=== PATIENT | male | born 1955 | race Caucasian/White ===

== ENCOUNTER 2018-03-23 07:15 | Emergency (ER) | payer BC, OTHER ==
[~2018-03-23] VITALS: Ht 180.3 cm; Wt 90.0 kg
[2018-03-23] MEDS ORDERED: etomidate 2mg/ml inj. IV ONE (07:30)
[2018-03-23 07:46] LABS: BASOPHILS % (AUTO) 0.5 % (0-1); EOSINOPHILS # (AUTO) 0.3 X10'3 (0-0.9); EOSINOPHILS % (AUTO) 4.8 % (0-6); HEMATOCRIT 40.7 % (42.0-52.0); LYMPHOCYTES # (AUTO) 1.5 X10'3 (1.1-4.8); MEAN CORPUSCULAR HEMOGLOBIN 29.5 PG (27.0-31.0); MEAN CORPUSCULAR HGB CONC 34.4 % (33.0-36.5); MEAN CORPUSCULAR VOLUME 85.7 FL (78-98); MEAN PLATELET VOLUME 9.5 FL (7.4-10.4); MONOCYTES # (AUTO) 0.6 X10'3 (0-0.9); MONOCYTES % (AUTO) 8.5 % (2-12); NEUTROPHILS # (AUTO) 4.6 X10'3 (1.8-7.7); NEUTROPHILS % (AUTO) 65.2 % (42-75); PLATELET COUNT 173 X10'3 (140-440); RED BLOOD COUNT 4.75 X10'6 (4.70-6.10); RED CELL DISTRIBUTION WIDTH 14.4 % (11.5-14.5); WHITE BLOOD COUNT 7.1 X10'3 (4.5-11.0)
[2018-03-23 08:00] LABS: ALANINE AMINOTRANSFERASE 31 U/L (12-78); ALBUMIN 3.3 G/DL (3.4-5.0); ALBUMIN/GLOBULIN RATIO 0.8 (1.1-1.5); ALKALINE PHOSPHATASE 68 IU/L (46-116); ANION GAP 11 (8-16); ASPARTATE AMINO TRANSFERASE 21 U/L (10-37); BILIRUBIN,TOTAL 0.5 MG/DL (0.1-1.0); BLOOD UREA NITROGEN 16 MG/DL (7-18); BUN/CREATININE RATIO 14.2 (5.4-32.0); CALCIUM 8.8 MG/DL (8.5-10.1); CHLORIDE 104 MMOL/L (99-107); CREATININE 1.13 MG/DL (0.60-1.10); GLUCOSE 178 MG/DL (70-104); POTASSIUM 4.2 MMOL/L (3.5-5.1); SODIUM 140 MMOL/L (135-145); TOTAL CARBON DIOXIDE 25.5 MMOL/L (24-32); TOTAL PROTEIN 7.2 G/DL (6.4-8.2); eGFR 66 ML/MIN
[2018-03-23 08:10] LABS: PARTIAL THROMBOPLASTIN TIME 29 SECONDS (22-32); PROTHROMBIN TIME 10.4 SECONDS (9.0-12.0)
[2018-03-23 09:29] VITALS: BP 123/69
== END 2018-03-23 09:39 | disposition home or self-care (01) ==
LOC: ER 07:16
DX: I48.92 Unspecified atrial flutter (principal); I48.91 Unspecified atrial fibrillation; Z95.5 Presence of coronary angioplasty implant and graft
CPT/HCPCS: 36415; 71045; 80053; 83880; 84484; 85025; 85610; 85730; 92960; 93005; 99285; J3490

== ENCOUNTER 2020-09-12 22:45 | Emergency (ER) | payer BC, OTHER ==
[~2020-09-12] VITALS: Ht 180.3 cm; Wt 80.0 kg
[2020-09-12 23:37] LABS: EOSINOPHILS # (AUTO) 0.3 X10'3 (0-0.9); MEAN PLATELET VOLUME 9.2 FL (7.4-10.4); MONOCYTES # (AUTO) 0.7 X10'3 (0-0.9)
[2020-09-12 23:38] LABS: BASOPHILS # (AUTO) 0.1 X10'3 (0-0.2); BASOPHILS % (AUTO) 0.7 % (0-1); EOSINOPHILS % (AUTO) 3.7 % (0-6); HEMATOCRIT 43.5 % (42.0-52.0); HEMOGLOBIN 14.6 g/dl (14.0-17.9); LYMPHOCYTES # (AUTO) 1.5 X10'3 (1.1-4.8); LYMPHOCYTES % (AUTO) 19.1 % (21-51); MEAN CORPUSCULAR HGB CONC 33.5 g/dL (33.0-36.5); MEAN CORPUSCULAR VOLUME 86.5 FL (78-98); MONOCYTES % (AUTO) 8.6 % (2-12); NEUTROPHILS # (AUTO) 5.4 X10'3 (1.8-7.7); NEUTROPHILS % (AUTO) 67.9 % (42-75); PLATELET COUNT 179 X10'3 (140-440); RED BLOOD COUNT 5.03 X10'6 (4.70-6.10); RED CELL DISTRIBUTION WIDTH 14.9 % (11.5-14.5)
[2020-09-12] MEDS: metoprolol tartrate 1mg/ml inj IV PRN (23:40)
[2020-09-12 23:41] LABS: D-DIMER 0.56 MG/L FEU (0-0.50); PARTIAL THROMBOPLASTIN TIME 29 SECONDS (22-32)
[2020-09-12 23:43] LABS: ALANINE AMINOTRANSFERASE 29 U/L (12-78); ALBUMIN 3.1 G/DL (3.4-5.0); ALBUMIN/GLOBULIN RATIO 0.7 (1.1-1.5); ALKALINE PHOSPHATASE 78 IU/L (46-116); ANION GAP 9 (8-16); ASPARTATE AMINO TRANSFERASE 16 U/L (10-37); BILIRUBIN,TOTAL 0.3 MG/DL (0.1-1.0); BLOOD UREA NITROGEN 16 MG/DL (7-18); BUN/CREATININE RATIO 16.3 (5.4-32.0); CALCIUM 9.4 MG/DL (8.5-10.1); CHLORIDE 105 MMOL/L (99-107); CREATININE 0.98 MG/DL (0.60-1.10); GLUCOSE 182 MG/DL (70-104); SODIUM 141 MMOL/L (135-145); TOTAL CARBON DIOXIDE 27.3 MMOL/L (24-32); TOTAL PROTEIN 7.5 G/DL (6.4-8.2); eGFR 77 ML/MIN
[2020-09-12] MEDS ORDERED: ALB0.5UD (23:53)
[2020-09-12] MEDS ORDERED: LEVO500T89 PO (23:53)
[2020-09-12] MEDS ORDERED: UMEC62.5 PO (23:53)
[2020-09-12] MEDS ORDERED: ROSU10TA28 PO (23:53)
[2020-09-12] MEDS ORDERED: METF-438 PO (23:53)
[2020-09-12] MEDS ORDERED: SITA100T15 PO (23:53)
[2020-09-12] MEDS ORDERED: ASPI81TA52 PO (23:53)
[2020-09-12] MEDS ORDERED: METO50TA16 PO (23:53)
[2020-09-12] MEDS ORDERED: APIX5TAB3 PO (23:53)
[2020-09-12] MEDS ORDERED: NYST1000 PO (23:53)
[2020-09-12 23:54] LABS: TROPONIN I < 0.04 NG/ML (0.0-0.05)
[2020-09-13] MEDS: metoprolol tartrate 1mg/ml inj IV PRN (00:11)
[2020-09-13] MEDS ORDERED: etomidate 2mg/ml inj. IV ONE (00:45)
[2020-09-13 02:24] VITALS: BP 112/69
== END 2020-09-13 02:26 | disposition home or self-care (01) ==
LOC: ER 22:45
DX: I48.20 Chronic atrial fibrillation, unspecified (principal); R06.02 Shortness of breath; I25.10 Atherosclerotic heart disease of native coronary artery without angina pectoris; J44.9 Chronic obstructive pulmonary disease, unspecified; F17.200 Nicotine dependence, unspecified, uncomplicated; Z85.118 Personal history of other malignant neoplasm of bronchus and lung; Z98.890 Other specified postprocedural states; Z79.82 Long term (current) use of aspirin; Z79.2 Long term (current) use of antibiotics; Z79.899 Other long term (current) drug therapy
CPT/HCPCS: 36415; 71045; 80053; 83880; 84439; 84443; 84484; 85025; 85379; 85610; 85730; 92960; 93005; 94760; 94799; 96374; 96376; 99291; J3490

== ENCOUNTER 2020-11-02 07:44 | Inpatient (IN) | payer BC, OTHER ==
[~2020-11-02] VITALS: Ht 180.3 cm; Wt 79.5 kg
[~2020-11-02 07:44] MED LIST: ALB0.5UD; APIX5TAB3 PO; ASPI81TA52 PO; LEVO500T89 PO; METF-438 PO; METO50TA16 PO; NYST1000 PO; ROSU10TA28 PO; SITA100T15 PO; UMEC62.5 PO
[2020-11-02 08:47] LABS: BASOPHILS # (AUTO) 0.1 X10'3 (0-0.2); BASOPHILS % (AUTO) 0.5 % (0-1); EOSINOPHILS # (AUTO) 0.1 X10'3 (0-0.9); EOSINOPHILS % (AUTO) 0.3 % (0-6); HEMATOCRIT 42.1 % (42.0-52.0); HEMOGLOBIN 14.2 g/dl (14.0-17.9); LYMPHOCYTES # (AUTO) 1.2 X10'3 (1.1-4.8); LYMPHOCYTES % (AUTO) 5.9 % (21-51); MEAN CORPUSCULAR HEMOGLOBIN 28.6 PG (27.0-31.0); MEAN CORPUSCULAR HGB CONC 33.7 g/dL (33.0-36.5); MEAN CORPUSCULAR VOLUME 84.7 FL (78-98); MEAN PLATELET VOLUME 9.2 FL (7.4-10.4); MONOCYTES # (AUTO) 0.9 X10'3 (0-0.9); MONOCYTES % (AUTO) 4.7 % (2-12); NEUTROPHILS # (AUTO) 17.2 X10'3 (1.8-7.7); NEUTROPHILS % (AUTO) 88.6 % (42-75); PLATELET COUNT 177 X10'3 (140-440); RED BLOOD COUNT 4.97 X10'6 (4.70-6.10); RED CELL DISTRIBUTION WIDTH 15.9 % (11.5-14.5); WHITE BLOOD COUNT 19.4 X10'3 (4.5-11.0)
[2020-11-02 08:54] LABS: ALANINE AMINOTRANSFERASE 20 U/L (12-78); ALBUMIN 3.9 G/DL (3.4-5.0); ALBUMIN/GLOBULIN RATIO 0.9 (1.1-1.5); ALKALINE PHOSPHATASE 77 IU/L (46-116); ANION GAP 12 (8-16); ASPARTATE AMINO TRANSFERASE 15 U/L (10-37); BLOOD UREA NITROGEN 13 MG/DL (7-18); BUN/CREATININE RATIO 13.7 (5.4-32.0); CALCIUM 9.4 MG/DL (8.5-10.1); CHLORIDE 104 MMOL/L (99-107); CREATININE 0.95 MG/DL (0.60-1.10); GLUCOSE 175 MG/DL (70-104); POTASSIUM 4.1 MMOL/L (3.5-5.1); SODIUM 140 MMOL/L (135-145); TOTAL CARBON DIOXIDE 24.4 MMOL/L (24-32); TOTAL PROTEIN 8.1 G/DL (6.4-8.2); eGFR 80 ML/MIN
[2020-11-02] MEDS: MESSAGE TO NURSING PO SCH ×2 (09:00→10:00)
[2020-11-02] MEDS ORDERED: iohexol 350MG/ML 100ml bottle IV ONE (09:13)
[2020-11-02] MEDS ORDERED: azithromycin/NS 500mg/250ml 250 ML IV ONE (09:15)
[2020-11-02] MEDS ORDERED: CefTRIAXone/D5W-Rocephin 1gm 50 ML IV ONE (09:15)
[2020-11-02] MEDS ORDERED: normal saline 1000ml 1,000 ML IV ONE (09:15)
[2020-11-02] MEDS ORDERED: normal saline 1000ML IV soln IVB ONE ×2 (09:15)
[2020-11-02] MEDS ORDERED: vancomycin/NS 1 GM ADD-VANTAGE 250 ML IV ONE (09:15)
[2020-11-02] MEDS ORDERED: potassium Cl 20 mEq SR tablet PO PRN ×2 (11:45)
[2020-11-02] MEDS ORDERED: magnesium 2GM in 50ml NS 50 ML IV PRN (11:45)
[2020-11-02] MEDS ORDERED: magnesium 4gm in 100ml NS 100 ML IV PRN (11:45)
[2020-11-02] MEDS ORDERED: acetaminophen 325mg tablet PO PRN ×2 (11:45)
[2020-11-02] MEDS ORDERED: morphine 2 MG/ML inj. syringe IV PRN (11:45)
[2020-11-02] MEDS ORDERED: potassium Cl 40MEQ/1/2NS 520ml 520 ML IV PRN ×2 (11:45)
[2020-11-02] MEDS ORDERED: magnesium hydroxide 30ml (MOM) UD suspension PO PRN (11:45)
[2020-11-02] MEDS ORDERED: PERFLUTREN PROTEIN-A MICROSPHR (Optison) 0.22 MG/ML 3ML VIAL IV ONE (11:45)
[2020-11-02] MEDS ORDERED: HYDROcodone/acetaminophen 5mg/325mg tablet PO PRN (11:45)
[2020-11-02] MEDS ORDERED: magnesium Cl slow-release 64mg tablet PO PRN (11:45)
[2020-11-02] MEDS ORDERED: ondansetron/PF 4mg/2ml inj IV PRN (11:45)
[2020-11-02] MEDS ORDERED: mag hydrox/Alum hydrox/simeth 30ml oral suspension PO PRN (11:45)
[2020-11-02 13:40] LABS: PLATELET ESTIMATE NORMAL; TOTAL CELLS COUNTED 100; TOXIC VACUOLATION 2+
[2020-11-02 13:41] LABS: TOXIC GRANULATION 2+
[2020-11-02] MEDS ORDERED: NITR0.4T SL (14:57)
[2020-11-02] MEDS ORDERED: ALBU18HF2 IH (14:57)
[2020-11-02] MEDS ORDERED: METO75TA PO (14:57)
[2020-11-02] MEDS: potassium cl 20mEq in 1/2 NS 1,000 ML IV SCH ×2 (16:15→23:32)
[2020-11-02] MEDS: K and/or MAG REPLACEMENT MC SCH (20:00)
[2020-11-02] MEDS: guaiFENesin ER 600mg tablet PO SCH (20:25)
[2020-11-02] MEDS: lactobacillus rhamnosus 10,000 MMU CELLS/CAPSULE PO SCH (20:25)
[2020-11-02] MEDS: docusate sod 100mg capsule PO SCH (20:25)
[2020-11-02] MEDS: vancomycin/NS 1 GM ADD-VANTAGE 250 ML IV SCH (23:31)
[2020-11-03] MEDS: diatr meglu/diatrizoate 30ml oral sol.-(3 dose) bottle PO SCH ×2 (00:32→14:52)
[2020-11-03 02:34] LABS: BASOPHILS # (AUTO) 0.1 X10'3 (0-0.2); BASOPHILS % (AUTO) 0.6 % (0-1); EOSINOPHILS # (AUTO) 0.1 X10'3 (0-0.9); EOSINOPHILS % (AUTO) 0.9 % (0-6); HEMATOCRIT 35.8 % (42.0-52.0); HEMOGLOBIN 11.8 g/dl (14.0-17.9); LYMPHOCYTES % (AUTO) 7.1 % (21-51); MEAN CORPUSCULAR HEMOGLOBIN 28.6 PG (27.0-31.0); MEAN CORPUSCULAR HGB CONC 32.9 g/dL (33.0-36.5); MEAN CORPUSCULAR VOLUME 86.8 FL (78-98); MEAN PLATELET VOLUME 9.3 FL (7.4-10.4); MONOCYTES # (AUTO) 0.9 X10'3 (0-0.9); MONOCYTES % (AUTO) 6.5 % (2-12); NEUTROPHILS # (AUTO) 11.5 X10'3 (1.8-7.7); NEUTROPHILS % (AUTO) 84.9 % (42-75); PLATELET COUNT 125 X10'3 (140-440); RED BLOOD COUNT 4.12 X10'6 (4.70-6.10); RED CELL DISTRIBUTION WIDTH 15.7 % (11.5-14.5); WHITE BLOOD COUNT 13.5 X10'3 (4.5-11.0)
--- NOTE | 2020-11-03 02:49 | NUR ---
pt is in bed sleeping with no distress acute resp distress noted. pt request to eat, educated pt, that he will be having a procedure that requires him to be NPO. no behavior issues. A&O x 4
[2020-11-03 02:54] LABS: ALBUMIN 2.8 G/DL (3.4-5.0); ALBUMIN/GLOBULIN RATIO 0.8 (1.1-1.5); ANION GAP 9 (8-16); ASPARTATE AMINO TRANSFERASE 19 U/L (10-37); BILIRUBIN,TOTAL 0.8 MG/DL (0.1-1.0); BLOOD UREA NITROGEN 8 MG/DL (7-18); BUN/CREATININE RATIO 10.3 (5.4-32.0); CALCIUM 8.1 MG/DL (8.5-10.1); CHLORIDE 107 MMOL/L (99-107); CREATININE 0.78 MG/DL (0.60-1.10); GLUCOSE 129 MG/DL (70-104); MAGNESIUM 1.6 MG/DL (1.5-2.4); SODIUM 139 MMOL/L (135-145); TOTAL CARBON DIOXIDE 23.4 MMOL/L (24-32); TOTAL PROTEIN 6.4 G/DL (6.4-8.2); eGFR > 90 ML/MIN
[2020-11-03 02:55] LABS: ALANINE AMINOTRANSFERASE 17 U/L (12-78); ALKALINE PHOSPHATASE 60 IU/L (46-116)
--- NOTE | 2020-11-03 06:53 | NUR ---
ATTEMPTED TO CALL REPORT. CN REQUSTED TO WAIT APROX 30MIN THEY JUST GOT MULTIPLE PTS.
[2020-11-03] MEDS: potassium cl 20mEq in 1/2 NS 1,000 ML IV SCH ×2 (07:45→18:11)
--- NOTE | 2020-11-03 07:48 | NUR ---
ATTEMPTED TO CALL REPORT TO PCU WAS DISCONECTED
--- NOTE | 2020-11-03 07:59 | NUR ---
3RD CALL FOR REPORT TO PCU. NURSE UNABLE TO TAKE REPORT SHE IS DOING A MED PASS, REQUESTED TO HAVE NURSE REVIEW CHART PRIOR TO CALLING BACK
[2020-11-03] MEDS: K and/or MAG REPLACEMENT MC SCH ×2 (08:00→20:00)
[2020-11-03] MEDS: lactobacillus rhamnosus 10,000 MMU CELLS/CAPSULE PO SCH ×2 (08:00→19:22)
[2020-11-03] MEDS ORDERED: azithromycin/NS 500mg/250ml 250 ML IV SCH (08:00)
[2020-11-03] MEDS: docusate sod 100mg capsule PO SCH ×2 (08:00→19:22)
--- NOTE | 2020-11-03 08:39 | NUR ---
Patient in room ED 9. I have received report from GENE Mooney and had the opportunity to ask questions and assume patient care.
[2020-11-03] MEDS: guaiFENesin ER 600mg tablet PO SCH ×2 (09:27→19:23)
[2020-11-03] MEDS: enoxaparin 40mg/0.4ml syringe SUBCUT SCH (09:28)
[2020-11-03] MEDS: MESSAGE TO NURSING PO SCH (10:00)
[2020-11-03] MEDS ORDERED: diatr meglu/diatrizoate 30ml oral sol.-(3 dose) bottle PO ONE (10:12)
[2020-11-03] MEDS ORDERED: iohexol 300mg/ml 100ml inj. ONE (10:45)
[2020-11-03 11:00] VITALS: BP 123/64
[2020-11-03] MEDS: CefTRIAXone/D5W-Rocephin 1gm 50 ML IV SCH (12:00)
[2020-11-03] MEDS: vancomycin/NS 1 GM ADD-VANTAGE 250 ML IV SCH (14:00)
--- NOTE | 2020-11-03 14:12 | NUR ---
Patient noted to have diffuse, warm redness to BLE, lower trunk, face, arms and etc. States this is new for him. Pt received both Rocephin and Azithromycin within one hour. Vanco given yesterday in ED. Azithromycin was in progress at time of reaction. Azithromycin stopped and information forwarded to Dr. Castro. Dr. Castro gave order to proceed with Vanco infusion, as planned. Order also received to give 25 mg IV push diphenhydramine, for allergic reaction. Patient advised of plan and in agreement. Will monitor for allergic reactions.
[2020-11-03 15:00] VITALS: BP 126/70
[2020-11-03 18:00] VITALS: BP 115/63
--- NOTE | 2020-11-03 18:41 | NUR ---
Problems reprioritized. Patient report given, questions answered & plan of care reviewed with GENE White.
[2020-11-03] MEDS: diphenhydrAMINE 50 mg/ml inj IV PRN (19:29)
[2020-11-03 22:00] VITALS: BP 98/50
[2020-11-03] MEDS ORDERED: VANCOMYCIN LEVEL IV ONE (23:30)
[2020-11-04] MEDS: ipratropium/albuterol 3ml nebule NEB PRN ×2 (00:12→23:01)
[2020-11-04] MEDS: vancomycin/NS 1 GM ADD-VANTAGE 250 ML IV SCH (00:13)
[2020-11-04 02:00] VITALS: BP 103/60
[2020-11-04] MEDS: potassium cl 20mEq in 1/2 NS 1,000 ML IV SCH ×2 (04:27→13:45)
[2020-11-04 06:19] LABS: BASOPHILS % (AUTO) 0 % (0-1); EOSINOPHILS # (AUTO) 0.6 X10'3 (0-0.9); EOSINOPHILS % (AUTO) 5.1 % (0-6); HEMATOCRIT 36.9 % (42.0-52.0); HEMOGLOBIN 12.3 g/dl (14.0-17.9); LYMPHOCYTES # (AUTO) 0.4 X10'3 (1.1-4.8); MEAN CORPUSCULAR HEMOGLOBIN 28.7 PG (27.0-31.0); MEAN CORPUSCULAR HGB CONC 33.3 g/dL (33.0-36.5); MEAN PLATELET VOLUME 9.4 FL (7.4-10.4); MONOCYTES # (AUTO) 0.3 X10'3 (0-0.9); MONOCYTES % (AUTO) 2.9 % (2-12); NEUTROPHILS # (AUTO) 9.7 X10'3 (1.8-7.7); PLATELET COUNT 147 X10'3 (140-440); RED BLOOD COUNT 4.29 X10'6 (4.70-6.10); RED CELL DISTRIBUTION WIDTH 15.8 % (11.5-14.5)
--- NOTE | 2020-11-04 06:22 | NUR ---
Problems reprioritized. Patient report given, questions answered & plan of care reviewed with GENE Panda.
--- NOTE | 2020-11-04 06:30 | NUR ---
Patient in room PCU 3023. I have received report from GENE Ramirez and had the opportunity to ask questions and assume patient care.
[2020-11-04 06:42] LABS: ALANINE AMINOTRANSFERASE 14 U/L (12-78); ALBUMIN 2.5 G/DL (3.4-5.0); ALBUMIN/GLOBULIN RATIO 0.7 (1.1-1.5); ALKALINE PHOSPHATASE 72 IU/L (46-116); ANION GAP 11 (8-16); ASPARTATE AMINO TRANSFERASE 12 U/L (10-37); BILIRUBIN,TOTAL 0.7 MG/DL (0.1-1.0); BLOOD UREA NITROGEN 11 MG/DL (7-18); BUN/CREATININE RATIO 13.8 (5.4-32.0); CALCIUM 7.8 MG/DL (8.5-10.1); CHLORIDE 105 MMOL/L (99-107); GLUCOSE 157 MG/DL (70-104); MAGNESIUM 1.7 MG/DL (1.5-2.4); POTASSIUM 3.8 MMOL/L (3.5-5.1); SODIUM 134 MMOL/L (135-145); TOTAL CARBON DIOXIDE 18.2 MMOL/L (24-32); TOTAL PROTEIN 6.2 G/DL (6.4-8.2); eGFR > 90 ML/MIN
[2020-11-04 07:00] VITALS: BP 101/65
[2020-11-04] MEDS: K and/or MAG REPLACEMENT MC SCH ×2 (08:00→20:00)
[2020-11-04] MEDS: docusate sod 100mg capsule PO SCH ×2 (08:00→20:00)
--- NOTE | 2020-11-04 08:26 | NUR ---
Messaged Dr Castro: PAGER ID: [phone] MESSAGE: [place] S [id number] pt continues with warm red skin from lower half of trunk thru LE. Denies itching, SOB or other discomfort. Azithromycin is due this a.m. but was in progress during initial reddening. Please advise. Amarilys [phone]
[2020-11-04] MEDS: diphenhydrAMINE 50 mg/ml inj IV PRN ×2 (08:41→22:50)
[2020-11-04] MEDS: guaiFENesin ER 600mg tablet PO SCH ×2 (08:42→21:27)
[2020-11-04] MEDS: lactobacillus rhamnosus 10,000 MMU CELLS/CAPSULE PO SCH ×2 (08:42→21:28)
[2020-11-04] MEDS: enoxaparin 40mg/0.4ml syringe SUBCUT SCH (08:48)
[2020-11-04] MEDS: CefTRIAXone/D5W-Rocephin 1gm 50 ML IV SCH (09:41)
[2020-11-04] MEDS ORDERED: dextrose 50%-water 50ml dispensing syringe IV PRN ×2 (10:00)
[2020-11-04] MEDS ORDERED: MESSAGE TO PHARMACY PO ONE (10:00)
[2020-11-04] MEDS: MESSAGE TO NURSING PO SCH (10:00)
[2020-11-04] MEDS ORDERED: dextrose ORAL solution 15 GM/59 ML bottle PO PRN ×2 (10:00)
[2020-11-04] MEDS ORDERED: glucagon, human recombinant 1mg kit SUBCUT PRN (10:00)
[2020-11-04] MEDS: insulin Lispro (HumaLOG) vial - multi-dose SQ SCH (11:27)
[2020-11-04] MEDS ORDERED: albuterol 2.5 MG/3 ML nebule NEB PRN (11:55)
[2020-11-04] MEDS: linagliptin 5mg tablet PO SCH (12:42)
[2020-11-04 18:00] VITALS: BP 107/86
--- NOTE | 2020-11-04 18:44 | NUR ---
Problems reprioritized. Patient report given, questions answered & plan of care reviewed with Norah MILLS.
--- NOTE | 2020-11-04 18:44 | NUR ---
Patient in room PCU 3023. I have received report from SEBAS MILLS and had the opportunity to ask questions and assume patient care. Addendum: 11/04/20 at 1845 by Norah Carlson RN Amended: Links added.
[2020-11-04] MEDS ORDERED: metFORMIN 500mg tablet PO SCH (20:00)
[2020-11-04] MEDS: metoprolol tartrate 25mg tablet PO SCH (20:00)
[2020-11-04] MEDS ORDERED: insulin glargine (Lantus) pen - multi-dose SQ SCH (21:00)
[2020-11-04] MEDS: atorvastatin 20mg tablet PO SCH (21:28)
[2020-11-04] MEDS: apixaban 5mg tablet PO SCH (21:28)
[2020-11-04 22:00] VITALS: BP 128/63
[2020-11-05] MEDS: potassium cl 20mEq in 1/2 NS 1,000 ML IV SCH ×3 (01:07→19:45)
[2020-11-05 02:00] VITALS: BP 103/66
[2020-11-05 06:00] VITALS: BP 105/64
[2020-11-05 06:30] LABS: BASOPHILS % (AUTO) 0.1 % (0-1); EOSINOPHILS # (AUTO) 0.9 X10'3 (0-0.9); EOSINOPHILS % (AUTO) 12.6 % (0-6); HEMATOCRIT 34.2 % (42.0-52.0); HEMOGLOBIN 11.4 g/dl (14.0-17.9); LYMPHOCYTES # (AUTO) 0.6 X10'3 (1.1-4.8); MEAN CORPUSCULAR HEMOGLOBIN 28.6 PG (27.0-31.0); MEAN CORPUSCULAR HGB CONC 33.2 g/dL (33.0-36.5); MEAN CORPUSCULAR VOLUME 86.2 FL (78-98); MEAN PLATELET VOLUME 8.9 FL (7.4-10.4); MONOCYTES # (AUTO) 0.5 X10'3 (0-0.9); MONOCYTES % (AUTO) 6.3 % (2-12); NEUTROPHILS # (AUTO) 5.5 X10'3 (1.8-7.7); PLATELET COUNT 164 X10'3 (140-440); RED BLOOD COUNT 3.97 X10'6 (4.70-6.10); RED CELL DISTRIBUTION WIDTH 15.5 % (11.5-14.5); WHITE BLOOD COUNT 7.5 X10'3 (4.5-11.0)
--- NOTE | 2020-11-05 06:38 | NUR ---
Problems reprioritized. Patient report given, questions answered & plan of care reviewed with SEBAS MILLS. Addendum: 11/05/20 at 0639 by Norah Carlson RN Amended: Links added.
--- NOTE | 2020-11-05 06:39 | NUR ---
Patient in room PCU 3023. I have received report from GENE Almazan and had the opportunity to ask questions and assume patient care.
[2020-11-05 07:01] LABS: ALANINE AMINOTRANSFERASE 16 U/L (12-78); ALBUMIN 2.4 G/DL (3.4-5.0); ALBUMIN/GLOBULIN RATIO 0.6 (1.1-1.5); ALKALINE PHOSPHATASE 71 IU/L (46-116); ANION GAP 13 (8-16); ASPARTATE AMINO TRANSFERASE 12 U/L (10-37); BILIRUBIN,TOTAL 0.4 MG/DL (0.1-1.0); BLOOD UREA NITROGEN 6 MG/DL (7-18); BUN/CREATININE RATIO 8.2 (5.4-32.0); CALCIUM 8.2 MG/DL (8.5-10.1); CHLORIDE 110 MMOL/L (99-107); CREATININE 0.73 MG/DL (0.60-1.10); GLUCOSE 145 MG/DL (70-104); MAGNESIUM 2.1 MG/DL (1.5-2.4); POTASSIUM 3.9 MMOL/L (3.5-5.1); SODIUM 142 MMOL/L (135-145); TOTAL CARBON DIOXIDE 19.1 MMOL/L (24-32); TOTAL PROTEIN 6.1 G/DL (6.4-8.2); eGFR > 90 ML/MIN
[2020-11-05] MEDS: K and/or MAG REPLACEMENT MC SCH ×2 (08:00→20:00)
[2020-11-05] MEDS: docusate sod 100mg capsule PO SCH ×2 (08:00→20:00)
[2020-11-05] MEDS: ipratropium 0.5 MG/2.5ML nebule NEB SCH ×3 (08:41→19:38)
[2020-11-05] MEDS: CefTRIAXone/D5W-Rocephin 1gm 50 ML IV SCH (09:26)
[2020-11-05] MEDS: lactobacillus rhamnosus 10,000 MMU CELLS/CAPSULE PO SCH ×2 (09:27→21:08)
[2020-11-05] MEDS: aspirin 81mg, enteric-coated 1 TAB TABLET.DR PO SCH (09:27)
[2020-11-05] MEDS: enoxaparin 40mg/0.4ml syringe SUBCUT SCH (09:28)
[2020-11-05] MEDS: linagliptin 5mg tablet PO SCH (09:28)
[2020-11-05] MEDS: metoprolol tartrate 25mg tablet PO SCH ×2 (09:29→21:10)
[2020-11-05] MEDS: apixaban 5mg tablet PO SCH (09:29)
[2020-11-05] MEDS: guaiFENesin ER 600mg tablet PO SCH ×2 (09:30→21:08)
[2020-11-05] MEDS: insulin Lispro (HumaLOG) vial - multi-dose SQ SCH (09:37)
[2020-11-05] MEDS: diphenhydrAMINE 50 mg/ml inj IV PRN ×2 (09:46→21:12)
[2020-11-05] MEDS: MESSAGE TO NURSING PO SCH (10:00)
[2020-11-05 11:00] VITALS: BP 121/68
[2020-11-05] MEDS: metFORMIN 500mg tablet PO SCH ×2 (13:02→21:08)
--- NOTE | 2020-11-05 14:13 | NUR ---
DM/malnutrition consults: Pt with A1c 7.1%, well controlled. Written DM education with RD contact information placed in patient's chart. Noted pt reports both unsure of wt loss and 24-33 lb wt loss with decreased appetite per malnutrition risk screen with RN. Current documented wt is stable with wt hx in EMR. Currently on a CHO controlled diet documented with 75-100% PO intake throughout LOS. Pt with no documented decrease in muscle strength and with BLE 2+ mild edema. Pt currently lacks a minimum of two criteria for malnutrition. Will continue to follow. Addendum: 11/05/20 at [address] Amended: Links added.
[2020-11-05 15:00] VITALS: BP 162/65
[2020-11-05 18:00] VITALS: BP 132/67
--- NOTE | 2020-11-05 19:36 | NUR ---
Paged Dr Dahl re: glycemic management: PAGER ID: [phone] MESSAGE: Ramin S [id number] has resumed PO antiDM drugs. Blood sugar is 93 before dinner. Can we d/c subq Humalog and lantus? Concerned pt will go too low with insulin and POs. Amarilys [phone]
[2020-11-05] MEDS: atorvastatin 20mg tablet PO SCH (21:09)
--- NOTE | 2020-11-05 21:45 | NUR ---
Dr Dahl gave order to hold insulin d/t resumption of PO anti-diabetics. Order held on APR. Patient agrees with plan of care.
[2020-11-05 22:00] VITALS: BP 144/79
[2020-11-05] MEDS ORDERED: VANCOMYCIN LEVEL IV ONE (23:30)
[2020-11-06 02:00] VITALS: BP 120/65
[2020-11-06] MEDS: ipratropium 0.5 MG/2.5ML nebule NEB SCH ×2 (02:29→07:20)
[2020-11-06 06:00] VITALS: BP 156/69
--- NOTE | 2020-11-06 06:26 | NUR ---
Problems reprioritized. Patient report given, questions answered & plan of care reviewed with GENE Hillman.
--- NOTE | 2020-11-06 06:30 | NUR ---
Patient in room PCU 3023. I have received report from Amarilys MILLS and had the opportunity to ask questions and assume patient care.
[2020-11-06 06:34] LABS: BASOPHILS % (AUTO) 0.1 % (0-1); EOSINOPHILS # (AUTO) 0.9 X10'3 (0-0.9); EOSINOPHILS % (AUTO) 10.6 % (0-6); HEMATOCRIT 34.7 % (42.0-52.0); HEMOGLOBIN 11.5 g/dl (14.0-17.9); LYMPHOCYTES # (AUTO) 0.8 X10'3 (1.1-4.8); LYMPHOCYTES % (AUTO) 8.7 % (21-51); MEAN CORPUSCULAR HEMOGLOBIN 28.8 PG (27.0-31.0); MEAN CORPUSCULAR HGB CONC 33.1 g/dL (33.0-36.5); MEAN CORPUSCULAR VOLUME 86.8 FL (78-98); MEAN PLATELET VOLUME 8.3 FL (7.4-10.4); MONOCYTES # (AUTO) 0.6 X10'3 (0-0.9); MONOCYTES % (AUTO) 6.9 % (2-12); NEUTROPHILS # (AUTO) 6.5 X10'3 (1.8-7.7); NEUTROPHILS % (AUTO) 73.7 % (42-75); PLATELET COUNT 187 X10'3 (140-440); RED CELL DISTRIBUTION WIDTH 15.8 % (11.5-14.5); WHITE BLOOD COUNT 8.9 X10'3 (4.5-11.0)
[2020-11-06 06:47] LABS: ALANINE AMINOTRANSFERASE 22 U/L (12-78); ALBUMIN 2.5 G/DL (3.4-5.0); ALBUMIN/GLOBULIN RATIO 0.7 (1.1-1.5); ALKALINE PHOSPHATASE 77 IU/L (46-116); ANION GAP 11 (8-16); ASPARTATE AMINO TRANSFERASE 14 U/L (10-37); BILIRUBIN,TOTAL 0.3 MG/DL (0.1-1.0); BLOOD UREA NITROGEN 7 MG/DL (7-18); BUN/CREATININE RATIO 9.6 (5.4-32.0); CALCIUM 8.4 MG/DL (8.5-10.1); CHLORIDE 109 MMOL/L (99-107); CREATININE 0.73 MG/DL (0.60-1.10); GLUCOSE 128 MG/DL (70-104); MAGNESIUM 1.9 MG/DL (1.5-2.4); POTASSIUM 4.3 MMOL/L (3.5-5.1); SODIUM 142 MMOL/L (135-145); TOTAL CARBON DIOXIDE 22.5 MMOL/L (24-32); TOTAL PROTEIN 6.3 G/DL (6.4-8.2); eGFR > 90 ML/MIN
[2020-11-06] MEDS: docusate sod 100mg capsule PO SCH (08:00)
[2020-11-06] MEDS: K and/or MAG REPLACEMENT MC SCH (08:00)
[2020-11-06] MEDS: aspirin 81mg, enteric-coated 1 TAB TABLET.DR PO SCH (08:05)
[2020-11-06] MEDS: enoxaparin 40mg/0.4ml syringe SUBCUT SCH (08:05)
[2020-11-06] MEDS: CefTRIAXone/D5W-Rocephin 1gm 50 ML IV SCH (08:05)
[2020-11-06] MEDS: potassium cl 20mEq in 1/2 NS 1,000 ML IV SCH (08:05)
[2020-11-06] MEDS: guaiFENesin ER 600mg tablet PO SCH (08:06)
[2020-11-06] MEDS: linagliptin 5mg tablet PO SCH (08:06)
[2020-11-06] MEDS: metFORMIN 500mg tablet PO SCH (08:06)
[2020-11-06] MEDS: lactobacillus rhamnosus 10,000 MMU CELLS/CAPSULE PO SCH (08:06)
[2020-11-06 08:07] VITALS: BP_SYST 156
[2020-11-06] MEDS: metoprolol tartrate 25mg tablet PO SCH (08:07)
[2020-11-06] MEDS ORDERED: LEVO500T89 PO (12:09)
--- NOTE | 2020-11-06 13:38 | NUR ---
Patient safe for discharge per doctors orders. Medications and discharge instruction discussed with ability for patient and family to ask questions. Medications e-scripted to pharmacy. PIV discontinued cannula intact. Telemetry discontinued. Belonging sent with patient. Wheeled to lobby by nurse. Patient went home with family in private vehicle.
== END 2020-11-06 13:38 | disposition home or self-care (01) | DRG 871 ==
LOC: ER 07:44 → ED HOLD 11:59 → PCU 3S 11-03 08:45
PROVIDERS: ADMIT Internal Medicine; ATTEND Internal Medicine
PROC: B32T1ZZ Computerized Tomography (CT Scan) of Left Pulmonary Artery using Low Osmolar Contrast (ICD-10-PCS; principal; 2020-11-02)
PROC: B3201ZZ Computerized Tomography (CT Scan) of Thoracic Aorta using Low Osmolar Contrast (ICD-10-PCS; 2020-11-02)
PROC: B32S1ZZ Computerized Tomography (CT Scan) of Right Pulmonary Artery using Low Osmolar Contrast (ICD-10-PCS; 2020-11-02)
PROC: BW251ZZ Computerized Tomography (CT Scan) of Chest, Abdomen and Pelvis using Low Osmolar Contrast (ICD-10-PCS; 2020-11-03)
DX: A41.9 Sepsis, unspecified organism (principal); J18.9 Pneumonia, unspecified organism; J44.0 Chronic obstructive pulmonary disease with (acute) lower respiratory infection; J90 Pleural effusion, not elsewhere classified; E11.9 Type 2 diabetes mellitus without complications; E78.5 Hyperlipidemia, unspecified; I10 Essential (primary) hypertension; I25.10 Atherosclerotic heart disease of native coronary artery without angina pectoris; R09.02 Hypoxemia; I48.0 Paroxysmal atrial fibrillation; Z77.090 Contact with and (suspected) exposure to asbestos; Z80.8 Family history of malignant neoplasm of other organs or systems; Z85.118 Personal history of other malignant neoplasm of bronchus and lung; I25.2 Old myocardial infarction; Z87.891 Personal history of nicotine dependence; Z92.21 Personal history of antineoplastic chemotherapy; Z92.3 Personal history of irradiation; Z95.1 Presence of aortocoronary bypass graft; Z95.5 Presence of coronary angioplasty implant and graft; Z79.899 Other long term (current) drug therapy; Z79.82 Long term (current) use of aspirin
CPT/HCPCS: 36415; 71046; 71260; 71275; 74177; 80053; 80202; 82948; 83036; 83605; 83735; 83880; 84145; 84484; 85007; 85025; 87040; 87635; 93005; 93306; 94640; 94760; 96365; 96375; 99285; C9803; G0378; J0456; J0696; J1200; J1650; J1815; J3370; J3480; J7030; Q9963; Q9967